=== PATIENT | male | born 1995 | race Caucasian/White ===

== ENCOUNTER 2016-08-18 16:04 | Emergency (ER) | payer BC ==
[2016-08-18 17:10] VITALS: BP 134/62
--- NOTE | 2016-08-18 17:20 | ED ---
Skin Complaint - HPI Summary HPI Summary: 20 yr old male with the complaint of abscess. HPI: the patient states that 5 days ago he began to get swelling in the pilonidal area. He had an abscess a year go that was drained, and he was put on antibiotics for it. It got better. He has a recurrence in the same area now. He has pain moderate 5/10. Localized to the area, and this morning the abscess spontaneously drained. He denies fever or chills. He is otherwise healthy. - History of Current Complaint Chief Complaint: UCWounds Time Seen by Provider: 08/18/16 17:09 Stated Complaint: lower back skin complaint - Allergy/Home Medications Allergies/Adverse Reactions: Allergies Allergy/AdvReac Type Severity Reaction Status Date / Time No Known Allergies Allergy Verified 08/18/16 17:03 Home Medications: Home Medications Ibuprofen [Advil] 2 tab PO Q6HR PRN 08/18/16 [History Confirmed 08/18/16] PMH/Surg Hx/FS Hx/Imm Hx Previously Healthy: Yes - except prior pilonidal cysts abscess a year ago. GI History: Denies: Hx Ulcer - Surgical History Surgery Procedure, Year, and Place: Denies Infectious Disease History: No Infectious Disease History: Denies: Hx Clostridium Difficile, Hx Hepatitis, Hx Human Immunodeficiency Virus (HIV), Hx of Known/Suspected MRSA, Hx Shingles, Hx Tuberculosis, Hx Known/ Suspected VRE, Hx Known/Suspected VRSA, History Other Infectious Disease, Traveled Outside the in Last 30 Days - Family History Known Family History: Positive: None - Social History Occupation: Student Alcohol Use: Occasionally Substance Use Type: Reports: None Smoking Status (MU): Never Smoked Tobacco Review of Systems Constitutional: Negative Eyes: Negative ENT: Negative Cardiovascular: Negative Respiratory: Negative Gastrointestinal: Negative Musculoskeletal: Negative Skin: Other - abscess pilonidal that is draining Neurological: Negative Psychological: Normal All Other Systems Reviewed And Are Negative: Yes Physical Exam Triage Information Reviewed: Yes Vital Signs On Initial Exam: Initial Vitals Temp Pulse Resp BP Pulse Ox 99.5 F 103 18 134/62 100 08/18/16 17:04 08/18/16 17:04 08/18/16 17:04 08/18/16 17:04 08/18/16 17:04 Vital Signs Reviewed: Yes Appearance: Positive: Well-Appearing, No Pain Distress, Well-Nourished Skin: Positive: Warm, Other - There is swelling in the pilonidal area with erythema, and there is spontaneous drainage from pus in two places. minimal pus was able to be expressed from the spontaneously draininage abscess. No residual fluctuance remains at this point. No need for I and D at this point. Head/Face: Positive: Normal Head/Face Inspection Eyes: Positive: Normal ENT: Positive: Normal ENT inspection Respiratory/Lung Sounds: Positive: Clear to Auscultation Musculoskeletal: Positive: Normal Neurological: Positive: Normal, Alert, Oriented to Person Place, Time, CN Intact II-III Psychiatric: Positive: Normal Diagnostics - Vital Signs Vital Signs Temp Pulse Resp BP Pulse Ox 08/18/16 17:04 99.5 F 103 18 134/62 100 - Laboratory Lab Statement: Any lab studies that have been ordered have been reviewed, and results considered in the medical decision making process. Course/Dx - Course Course Of Treatment: 20 yr old male with spontaneously draining abscess in pilonidal area without any remaining fluctuance. Will start on Bactrim DS. refer for primary care follow up. - Diagnoses Provider Diagnoses: Pilonidal abscess Discharge - Discharge Plan Condition: Good Disposition: HOME Prescriptions: Sulfamethox/Trimethoprim DS* [Bactrim DS 800/160 TAB*] 1 tab PO BID #20 tab Referrals: Non Staff,Doctor [Primary Care Provider] - [facility] [Outside]
== END 2016-08-18 17:36 | disposition home or self-care (01) ==
LOC: UCCORT 16:04
DX: L05.01 Pilonidal cyst with abscess (principal)
CPT/HCPCS: 99212; G0463